=== PATIENT | female | born 1975 | race Asian ===

== ENCOUNTER 2017-02-03 09:19 | Outpatient (RCR) | payer OTHER | END 2017-02-04 | disposition home or self-care (01) | LOC: PTY 09:19 | DX: R26.89 Other abnormalities of gait and mobility (principal) | CPT/HCPCS: 97110; 97116; 97162; G0283 ==

== ENCOUNTER 2017-03-05 11:00 | Outpatient (RCR) | payer OTHER | END 2017-03-06 | disposition home or self-care (01) | LOC: PTY 11:00 | DX: R26.89 Other abnormalities of gait and mobility (principal); Z86.73 Personal history of transient ischemic attack (TIA), and cerebral infarction without residual deficits; I10 Essential (primary) hypertension; F32.9 Major depressive disorder, single episode, unspecified; F41.9 Anxiety disorder, unspecified | CPT/HCPCS: 97110; 97112; 97116; G0283 ==

== ENCOUNTER 2017-03-26 13:45 | Outpatient (RCR) | payer OTHER | END 2017-04-06 | disposition home or self-care (01) | LOC: PTY 13:45 | DX: R26.89 Other abnormalities of gait and mobility (principal); Z86.73 Personal history of transient ischemic attack (TIA), and cerebral infarction without residual deficits; I10 Essential (primary) hypertension ==

== ENCOUNTER 2017-06-02 09:15 | Outpatient (RCR) | payer OTHER | END 2017-06-06 | disposition home or self-care (01) | LOC: PTY 09:15 | DX: R26.89 Other abnormalities of gait and mobility (principal); R42 Dizziness and giddiness; Z86.73 Personal history of transient ischemic attack (TIA), and cerebral infarction without residual deficits ==

== ENCOUNTER 2017-06-17 09:30 | Outpatient (RCR) | payer OTHER | END 2017-07-07 | disposition home or self-care (01) | LOC: PTY 09:30 | DX: R26.89 Other abnormalities of gait and mobility (principal); R42 Dizziness and giddiness; Z86.73 Personal history of transient ischemic attack (TIA), and cerebral infarction without residual deficits | CPT/HCPCS: 97110; 97140; G0283 ==

== ENCOUNTER 2017-07-15 12:30 | Outpatient (RCR) | payer OTHER | END 2017-08-04 | disposition home or self-care (01) | LOC: PTY 12:30 | DX: M25.511 Pain in right shoulder (principal); M25.512 Pain in left shoulder; R26.89 Other abnormalities of gait and mobility; R42 Dizziness and giddiness ==

== ENCOUNTER 2017-07-22 13:30 | Outpatient (RCR) | payer OTHER | END 2017-08-04 | disposition home or self-care (01) | LOC: PTY 13:30 | DX: R26.89 Other abnormalities of gait and mobility (principal); R42 Dizziness and giddiness; Z86.73 Personal history of transient ischemic attack (TIA), and cerebral infarction without residual deficits | CPT/HCPCS: 97110; G0283 ==

== ENCOUNTER 2017-09-02 14:00 | Outpatient (RCR) | payer OTHER | END 2017-09-04 | disposition home or self-care (01) | LOC: PTY 14:00 | DX: M25.511 Pain in right shoulder (principal); M25.512 Pain in left shoulder; R42 Dizziness and giddiness ==

== ENCOUNTER 2017-09-09 14:00 | Outpatient (RCR) | payer OTHER | END 2017-10-04 | disposition home or self-care (01) | LOC: PTY 14:00 | DX: G44.89 Other headache syndrome (principal); I67.1 Cerebral aneurysm, nonruptured ==

== ENCOUNTER 2017-10-15 12:50 | Outpatient (RCR) | payer OTHER | END 2017-11-04 | disposition home or self-care (01) | LOC: PTY 12:50 | DX: G44.89 Other headache syndrome (principal); Z86.79 Personal history of other diseases of the circulatory system ==

== ENCOUNTER 2017-11-17 09:30 | Outpatient (RCR) | payer OTHER | END 2017-12-04 | disposition home or self-care (01) | LOC: PTY 09:30 | DX: G44.89 Other headache syndrome (principal); Z86.79 Personal history of other diseases of the circulatory system ==